=== PATIENT | male | born 1940 | race Caucasian/White ===

== ENCOUNTER → 2020-12-31 | Outpatient (CLI) | payer MEDICARE ==
[~2020-12-31] MED LIST: IOPAMIDOL 370 MG/ML 200 ML INFUS..BTL INJ ONE; SODIUM CHLORIDE 0.9% 50ML 50 ML ONE
== END ==
LOC: CT 15:06
PROVIDERS: ATTEND Family Medicine
DX: R07.1 Chest pain on breathing (principal)
CPT/HCPCS: 71260; Q9967

== ENCOUNTER → 2021-01-19 | Outpatient (CLI) | payer MEDICARE ==
[~2021-01-19] MED LIST changes: +FENTANYL CITRATE/PF 100MCG/2 ML INJ ONE; -IOPAMIDOL 370 MG/ML 200 ML INFUS..BTL INJ ONE; +MIDAZOLAM HCL 2 MG/2 ML VIAL ONE; -SODIUM CHLORIDE 0.9% 50ML 50 ML ONE
[2021-01-19 09:47] LABS: HEMOGLOBIN 11.4 g/dL (14.0-18.0)
[2021-01-19 10:29] LABS: INR 0.96
[2021-01-19 10:30] LABS: PARTIAL THROMBOPLASTIN TIME 31.2 seconds (23.8-35.5)
== END ==
LOC: US 09:01
PROVIDERS: ATTEND Family Medicine
DX: D38.1 Neoplasm of uncertain behavior of trachea, bronchus and lung (principal); Z20.822 Contact with and (suspected) exposure to COVID-19
CPT/HCPCS: 32408; 36415; 71045; 77012; 85014; 85049; 85610; 85730; 88305; J2250; J3010; U0002; 88342; 99152; 99153

== ENCOUNTER 2021-08-08 09:37 | Inpatient (IN) | payer MEDICARE ==
[~2021-08-08] VITALS: Ht 180.3 cm; Wt 69.9 kg
[2021-08-08 10:29] LABS: BASOPHILS % 0.4 % (0.0-1.0); EOSINOPHILS # (AUTO) 0.3 (0.0-0.4); HEMATOCRIT 37.8 % (38.2-49.6); HEMOGLOBIN 12.2 g/dL (14.0-18.0); LYMPHOCYTES # (AUTO) 1.7 (1.0-3.2); LYMPHOCYTES % 15.7 % (18.0-39.1); MEAN CORPUSCULAR HEMOGLOBIN 32.5 pg (28-32); MEAN CORPUSCULAR HGB CONC 32.3 g/dL (31-35); MEAN CORPUSCULAR VOLUME 100.8 fL (81-99); MONOCYTES # (AUTO) 0.9 (0.2-0.8); NEUTROPHILS # (AUTO) 7.7 (2.1-6.9); NEUTROPHILS % 72.6 % (38.7-80.0); PLATELET COUNT 182 x10e3/uL (140-360); RED BLOOD COUNT 3.75 x10e6/uL (4.3-5.7); RED CELL DISTRIBUTION WIDTH 15.6 % (11.7-14.4)
[2021-08-08] MEDS ORDERED: ACETAMINOPHEN 325 MG TAB PO ONE (10:30)
[2021-08-08 10:38] LABS: INR 0.98; PROTHROMBIN TIME 13.9 seconds (11.9-14.5)
[2021-08-08 10:47] LABS: ALANINE AMINOTRANSFERASE 6 IU/L (0-55); ALBUMIN 3.4 g/dL (3.5-5.0); ALBUMIN/GLOBULIN RATIO 0.8 (0.8-2.0); ALKALINE PHOSPHATASE 63 IU/L (40-150); ANION GAP 14.8 mmol/L (8-16); BLOOD UREA NITROGEN 14 mg/dL (7-26); BUN/CREATININE RATIO 12 (6-25); CALCIUM 9.3 mg/dL (8.4-10.2); CARBON DIOXIDE 24 mmol/L (22-29); CHLORIDE 105 mmol/L (98-107); CREATINE KINASE 22 IU/L (30-200); CREATININE, SERUM 1.18 mg/dL (0.72-1.25); EST GLOMERULAR FILTRATION RATE 59 ML/MIN (60-); GLUCOSE 110 mg/dL (74-118); POTASSIUM 3.8 mmol/L (3.5-5.1); SODIUM 140 mmol/L (136-145)
[2021-08-08] MEDS ORDERED: SODIUM CHLORIDE 0.9% 100 ML ONE (11:15)
[2021-08-08] MEDS ORDERED: IOPAMIDOL 370 MG/ML 100 ML INFUS..BTL INJ ONE (11:15)
[2021-08-08] MEDS ORDERED: Morphine 2mg Syringe 2 MG/ML SYR IV PRN (13:00)
[2021-08-08] MEDS ORDERED: ONDANSETRON HCL INJ 2MG/ML 2ML 2 MG/ML VIAL IV PRN (13:00)
[2021-08-08] MEDS ORDERED: ASPIRIN81 MG PO (13:41)
[2021-08-08] MEDS ORDERED: CRESTOR10 MG PO (13:41)
[2021-08-08] MEDS ORDERED: LEVOTHYROXINE50 MCG PO (13:41)
[2021-08-08] MEDS ORDERED: REMDESIVIR 100MG 200 MG in SODIUM CHLORIDE 0.9% 100 ML IV ONE (14:30)
[2021-08-08 16:58] VITALS: BP 126/78
[2021-08-08] MEDS: ASCORBIC ACID 500 MG TAB PO SCH (17:02)
[2021-08-08 17:58] LABS: CREATINE KINASE MB 0.3 ng/mL (0-5.0)
[2021-08-08 20:00] VITALS: BP 104/75
[2021-08-08 20:14] VITALS: BP 104/75
[2021-08-08 21:00] VITALS: BP 104/75
[2021-08-08] MEDS: ENOXAPARIN SOD INJ 40 MG/0.4 ML SYR SC SCH (21:31)
[2021-08-09] VITALS: BP 111/68
[2021-08-09 04:00] VITALS: BP 123/80
[2021-08-09 06:35] LABS: BASOPHILS % 0.4 % (0.0-1.0); EOSINOPHILS # (AUTO) 0.3 (0.0-0.4); EOSINOPHILS % 3.7 % (0.0-6.0); HEMATOCRIT 32.2 % (38.2-49.6); HEMOGLOBIN 10.4 g/dL (14.0-18.0); LYMPHOCYTES # (AUTO) 1.4 (1.0-3.2); MEAN CORPUSCULAR HEMOGLOBIN 32.8 pg (28-32); MEAN CORPUSCULAR HGB CONC 32.3 g/dL (31-35); MEAN CORPUSCULAR VOLUME 101.6 fL (81-99); MONOCYTES # (AUTO) 0.9 (0.2-0.8); NEUTROPHILS # (AUTO) 4.1 (2.1-6.9); NEUTROPHILS % 61.6 % (38.7-80.0); PLATELET COUNT 154 x10e3/uL (140-360); RED BLOOD COUNT 3.17 x10e6/uL (4.3-5.7); RED CELL DISTRIBUTION WIDTH 15.7 % (11.7-14.4)
[2021-08-09 06:53] LABS: CALCIUM 8.5 mg/dL (8.4-10.2); CREATININE, SERUM 1.13 mg/dL (0.72-1.25)
[2021-08-09 06:54] LABS: CREATINE KINASE 16 IU/L (30-200)
[2021-08-09 08:46] VITALS: BP 118/67
[2021-08-09] MEDS: DEXAMETHASONE SOD PHOS 10 MG/1 ML VIAL IV SCH (09:04)
[2021-08-09] MEDS: CEFTRIAXONE 2 GM in SODIUM CHLORIDE 0.9% 100 ML IV SCH (09:04)
[2021-08-09] MEDS: ZINC SULFATE 50 MG CAP PO SCH (09:05)
[2021-08-09] MEDS: ASCORBIC ACID 500 MG TAB PO SCH ×2 (09:05→15:47)
[2021-08-09] MEDS: ENOXAPARIN SOD INJ 40 MG/0.4 ML SYR SC SCH ×2 (09:05→21:10)
[2021-08-09] MEDS: CRESTOR 10MG PO SCH (09:05)
[2021-08-09] MEDS: PANTOPRAZOLE SOD 40 MG TABEC PO SCH ×2 (09:05→15:47)
[2021-08-09] MEDS: ASPIRIN 81 MG CHEW TAB PO SCH (09:05)
[2021-08-09] MEDS: LEVOTHYROXINE SODIUM 50 MCG TAB PO SCH (09:05)
[2021-08-09] MEDS ORDERED: SODIUM CHLORIDE 0.9% 250ML 250 ML ONE (09:56)
[2021-08-09] MEDS: REMDESIVIR 100MG 100 MG in SODIUM CHLORIDE 0.9% 100 ML IV SCH (14:31)
[2021-08-09] MEDS: METOPROLOL TARTRATE 25 MG TAB PO SCH (15:46)
[2021-08-09 20:19] VITALS: BP 92/63
[2021-08-09 20:23] VITALS: BP 92/63
[2021-08-10] VITALS (9 sets, daily range): BP systolic 91–122; BP diastolic 59–80
[2021-08-10 06:15] LABS: BASOPHILS % 0.1 % (0.0-1.0); HEMATOCRIT 33.2 % (38.2-49.6); HEMOGLOBIN 10.7 g/dL (14.0-18.0); LYMPHOCYTES # (AUTO) 0.7 (1.0-3.2); MEAN CORPUSCULAR HEMOGLOBIN 32.3 pg (28-32); MEAN CORPUSCULAR HGB CONC 32.2 g/dL (31-35); MEAN CORPUSCULAR VOLUME 100.3 fL (81-99); MONOCYTES # (AUTO) 0.7 (0.2-0.8); MONOCYTES % 7.2 % (4.4-11.3); NEUTROPHILS # (AUTO) 7.7 (2.1-6.9); PLATELET COUNT 159 x10e3/uL (140-360); RED BLOOD COUNT 3.31 x10e6/uL (4.3-5.7); RED CELL DISTRIBUTION WIDTH 15.2 % (11.7-14.4)
[2021-08-10 06:43] LABS: ALBUMIN 2.8 g/dL (3.5-5.0); ALBUMIN/GLOBULIN RATIO 0.7 (0.8-2.0); ANION GAP 13.7 mmol/L (8-16); CALCIUM 8.6 mg/dL (8.4-10.2); CHOL/HDL RATIO 2.8 (3.9-4.7); CREATININE, SERUM 1.2 mg/dL (0.72-1.25); POTASSIUM 3.7 mmol/L (3.5-5.1)
[2021-08-10 07:03] LABS: THYROID STIMULATING HORMONE 1.249 uIU/mL (0.350-4.940)
[2021-08-10] MEDS: DEXAMETHASONE SOD PHOS 10 MG/1 ML VIAL IV SCH (09:42)
[2021-08-10] MEDS: CEFTRIAXONE 2 GM in SODIUM CHLORIDE 0.9% 100 ML IV SCH (09:42)
[2021-08-10] MEDS: CRESTOR 10MG PO SCH (09:42)
[2021-08-10] MEDS: ASPIRIN 81 MG CHEW TAB PO SCH (09:42)
[2021-08-10] MEDS: PANTOPRAZOLE SOD 40 MG TABEC PO SCH ×2 (09:43→16:48)
[2021-08-10] MEDS: ASCORBIC ACID 500 MG TAB PO SCH ×2 (09:43→16:48)
[2021-08-10] MEDS: LEVOTHYROXINE SODIUM 50 MCG TAB PO SCH (09:43)
[2021-08-10] MEDS: METOPROLOL TARTRATE 25 MG TAB PO SCH ×2 (09:43→16:48)
[2021-08-10] MEDS: ZINC SULFATE 50 MG CAP PO SCH (09:43)
[2021-08-10] MEDS: ENOXAPARIN SOD INJ 40 MG/0.4 ML SYR SC SCH ×2 (09:43→21:09)
[2021-08-10] MEDS: REMDESIVIR 100MG 100 MG in SODIUM CHLORIDE 0.9% 100 ML IV SCH (13:50)
[2021-08-11] VITALS: BP 94/65
[2021-08-11 05:30] VITALS: BP 117/72
[2021-08-11 07:25] LABS: BASOPHILS % 0.2 % (0.0-1.0); HEMATOCRIT 32.5 % (38.2-49.6); HEMOGLOBIN 10.7 g/dL (14.0-18.0); LYMPHOCYTES % 9.3 % (18.0-39.1); MEAN CORPUSCULAR HEMOGLOBIN 32.8 pg (28-32); MEAN CORPUSCULAR HGB CONC 32.9 g/dL (31-35); MEAN CORPUSCULAR VOLUME 99.7 fL (81-99); MONOCYTES # (AUTO) 0.8 (0.2-0.8); MONOCYTES % 7.5 % (4.4-11.3); NEUTROPHILS % 82.4 % (38.7-80.0); PLATELET COUNT 165 x10e3/uL (140-360); RED BLOOD COUNT 3.26 x10e6/uL (4.3-5.7); RED CELL DISTRIBUTION WIDTH 15.5 % (11.7-14.4)
[2021-08-11 07:50] LABS: ALBUMIN 2.7 g/dL (3.5-5.0); ALBUMIN/GLOBULIN RATIO 0.7 (0.8-2.0); ANION GAP 10.6 mmol/L (8-16); CREATININE, SERUM 1.25 mg/dL (0.72-1.25); POTASSIUM 3.6 mmol/L (3.5-5.1)
[2021-08-11 08:08] VITALS: BP 133/73
[2021-08-11 08:27] VITALS: BP 133/73
[2021-08-11] MEDS ORDERED: CEFTRIAXONE 2 GM VIAL ONE (08:34)
[2021-08-11] MEDS ORDERED: SODIUM CHLORIDE 0.9% 100 ML ONE (08:51)
[2021-08-11] MEDS: ASPIRIN 81 MG CHEW TAB PO SCH (09:26)
[2021-08-11] MEDS: DEXAMETHASONE SOD PHOS 10 MG/1 ML VIAL IV SCH (09:26)
[2021-08-11] MEDS: CEFTRIAXONE 2 GM in SODIUM CHLORIDE 0.9% 100 ML IV SCH (09:26)
[2021-08-11] MEDS: METOPROLOL TARTRATE 25 MG TAB PO SCH ×2 (09:27→16:51)
[2021-08-11] MEDS: LEVOTHYROXINE SODIUM 50 MCG TAB PO SCH (09:27)
[2021-08-11] MEDS: ASCORBIC ACID 500 MG TAB PO SCH ×2 (09:27→17:04)
[2021-08-11] MEDS: ENOXAPARIN SOD INJ 40 MG/0.4 ML SYR SC SCH (09:27)
[2021-08-11] MEDS: CRESTOR 10MG PO SCH (09:27)
[2021-08-11] MEDS: ZINC SULFATE 50 MG CAP PO SCH (09:27)
[2021-08-11] MEDS: PANTOPRAZOLE SOD 40 MG TABEC PO SCH ×2 (09:27→17:04)
[2021-08-11 11:44] VITALS: BP 113/74
[2021-08-11] MEDS: REMDESIVIR 100MG 100 MG in SODIUM CHLORIDE 0.9% 100 ML IV SCH (13:46)
[2021-08-11 15:49] VITALS: BP 107/59
[2021-08-11] MEDS ORDERED: AZITHROMYCIN250 MG PO (17:38)
[2021-08-11] MEDS ORDERED: PREDNISONE10 MG PO (17:39)
== END 2021-08-11 18:15 | disposition home or self-care (01) | DRG 177 ==
LOC: ER 09:57 → ERHOLD 12:55 → MED/SURG2 14:06
PROVIDERS: ADMIT Family Medicine; ATTEND Family Medicine
PROC: 8E0ZXY6 Isolation (ICD-10-PCS; 2021-08-08)
PROC: XW033E5 Introduction of Remdesivir Anti-infective into Peripheral Vein, Percutaneous Approach, New Technology Group 5 (ICD-10-PCS; principal; 2021-08-09)
DX: U07.1 COVID-19 (principal); J12.82 Pneumonia due to coronavirus disease 2019; J96.01 Acute respiratory failure with hypoxia; C34.90 Malignant neoplasm of unspecified part of unspecified bronchus or lung; J44.1 Chronic obstructive pulmonary disease with (acute) exacerbation; N17.9 Acute kidney failure, unspecified; I71.4 Abdominal aortic aneurysm, without rupture; D64.9 Anemia, unspecified; E78.5 Hyperlipidemia, unspecified; E03.9 Hypothyroidism, unspecified; I12.9 Hypertensive chronic kidney disease with stage 1 through stage 4 chronic kidney disease, or unspecified chronic kidney disease; N18.9 Chronic kidney disease, unspecified
CPT/HCPCS: 36415; 71275; 74174; 80048; 80053; 80061; 82550; 82553; 83880; 84443; 84484; 85025; 85610; 85730; 93005; 93306; 94799; 99251; 99284; J0248; J0696; J1100; J1650; J7050; Q9967; U0002